=== PATIENT | female | born 1965 ===

== ENCOUNTER 2020-10-17 12:45 | Inpatient (IN) | payer OTHER ==
[~2020-10-17] VITALS: Ht 149.9 cm; Wt 31.8 kg
[2020-10-17] MEDS ORDERED: ALLUPURINOL PO (15:41)
[2020-10-22] MEDS ORDERED: PANADOL EXTRA500 MG (09:49)
[2020-10-22] MEDS ORDERED: ZYLOPRIM100 M1 (09:50)
== END 2020-10-24 15:29 | disposition home or self-care (01) | DRG 743 ==
LOC: OB/GYN 10-22 05:20 → O/R 10-22 05:20 → OB/GYN 10-22 07:00
PROVIDERS: ADMIT Specialist; ATTEND Specialist
PROC: 0UT20ZZ Resection of Bilateral Ovaries, Open Approach (ICD-10-PCS; 2020-10-22)
PROC: 0UT70ZZ Resection of Bilateral Fallopian Tubes, Open Approach (ICD-10-PCS; 2020-10-22)
PROC: 07BC0ZZ Excision of Pelvis Lymphatic, Open Approach (ICD-10-PCS; 2020-10-22)
PROC: 0UT90ZZ Resection of Uterus, Open Approach (ICD-10-PCS; principal; 2020-10-22 07:00)
DX: N72 Inflammatory disease of cervix uteri (principal); D25.2 Subserosal leiomyoma of uterus; D26.1 Other benign neoplasm of corpus uteri; N85.00 Endometrial hyperplasia, unspecified; N94.89 Other specified conditions associated with female genital organs and menstrual cycle